=== PATIENT | female | born 1995 | race Two or more races ===

== ENCOUNTER 2022-02-16 19:28 | Emergency (ER) | payer MEDICAID ==
[~2022-02-16] VITALS: Ht 149.9 cm; Wt 71.0 kg
[2022-02-16 19:36] VITALS: BP 128/80
[2022-02-16 20:13] LABS: BASOPHILS % 0.6 % (0.0-2.0); EOSINOPHILS % 1.3 % (0.0-5.0); LYMPHOCYTES % 25.5 % (20.0-50.0); MEAN CORPUSCULAR HEMOGLOBIN 32.1 pg (28.0-32.0); MEAN CORPUSCULAR VOLUME 93.9 fL (81.0-99.0); MEAN PLATELET VOLUME 8.4 fl (7.4-10.4); MONOCYTES % 5.8 % (2.0-8.0); NEUTROPHILS % 66.8 % (40.0-76.0); PLATELET 337 x1000/uL (130-400); RED BLOOD CELL COUNT 4.05 mill/uL (4.2-5.4); RED CELL DISTRIBUTION WIDTH 12.5 % (11.6-14.6)
[2022-02-16 20:35] LABS: CHLORIDE 106 mEq/L (98-107)
[2022-02-16 20:59] LABS: B-HCG QUANTITATIVE 93935 mIU/mL (<3)
== END 2022-02-16 22:45 | disposition home or self-care (01) ==
LOC: ER 20:25
DX: O46.91 Antepartum hemorrhage, unspecified, first trimester (principal); Z3A.08 8 weeks gestation of pregnancy; O99.511 Diseases of the respiratory system complicating pregnancy, first trimester
CPT/HCPCS: 36415; 76805; 76810; 80053; 84702; 85025; 86850; 86900; 99284